=== PATIENT | female | born 1995 | race Caucasian/White ===

== ENCOUNTER 2025-04-17 22:22 | Emergency (ER) | payer MEDICAID ==
[~2025-04-17] VITALS: Ht 144.8 cm; Wt 70.0 kg
[2025-04-17 22:54] VITALS: TEMP 36.9; O2SAT 100
[2025-04-17] MEDS: MAGNESIUM/ALUMINUM HYDROXIDE/SIMETHICONE 30ML UDC PO ONE (23:22)
[2025-04-17] MEDS: PANTOPRAZOLE 40MG DR TABLET PO ONE (23:22)
[2025-04-17] MEDS: ACETAMINOPHEN 325MG TABLET PO ONE (23:23)
[2025-04-17 23:33] LABS: BASOPHILS % 0.8 % (0.0-2.0); EOSINOPHILS % 1.4 % (0.0-5.0); HEMATOCRIT. 37.4 % (36.0-48.0); HEMOGLOBIN. 12.8 g/dL (12.0-16.0); LYMPHOCYTES % 37.6 % (20.0-50.0); MEAN PLATELET VOLUME 9.0 fl (7.4-10.4); MONOCYTES % 5.9 % (2.0-8.0); NEUTROPHILS % 54.3 % (40.0-76.0); PLATELET 300 x1000/uL (130-400); RED BLOOD CELL COUNT 4.13 mill/uL (4.2-5.4); RED CELL DISTRIBUTION WIDTH 13.4 % (11.6-14.6)
[2025-04-17 23:34] LABS: CLARITY URINE CLEAR (CLEAR); COLOR URINE YELLOW (YELLOW); GLUCOSE URINE NEGATIVE (NEGATIVE); KETONES URINE NEGATIVE (NEGATIVE); LEUKOCYTE ESTERASE URINE TRACE (NEGATIVE); NITRITE URINE NEGATIVE (NEGATIVE); OCCULT BLOOD URINE 2+ (NEGATIVE); PH URINE 7.5 (4.5-8.0); PROTEIN URINE NEGATIVE (NEGATIVE); SPECIFIC GRAVITY URINE 1.014 (1.005-1.030); UROBILINOGEN URINE 0.2 E.U./dL (0.2-1.0)
[2025-04-17 23:48] LABS: *AMPHETAMINES SCREEN URINE NEGATIVE (NEGATIVE); *BARBITURATES SCREEN URINE NEGATIVE (NEGATIVE); *BENZODIAZEPINES SCREEN URINE NEGATIVE (NEGATIVE); *COCAINE SCREEN URINE NEGATIVE (NEGATIVE); CANNABINOID URINE SCREEN NEGATIVE (NEGATIVE); ECSTASY MDMA SCREEN URINE NEGATIVE (NEGATIVE); METHADONE URINE SCREEN NEGATIVE (NEGATIVE); OPIATES URINE SCREEN NEGATIVE (NEGATIVE); PHENCYCLIDINE URINE SCREEN NEGATIVE (NEGATIVE)
[2025-04-17 23:49] LABS: CREATININE 0.8 mg/dL (0.6-1.0); UREA NITROGEN BLOOD 12 mg/dL (9-23)
[2025-04-17 23:50] LABS: ETHANOL BLOOD < 10 mg/dL (<10)
[2025-04-17 23:52] LABS: ASPARTATE AMINOTRANSFERASE 18 IU/L (<34); BILIRUBIN DIRECT 0.1 mg/dL (<=3.0); BILIRUBIN TOTAL 0.3 mg/dL (0.1-1.0); PROTEIN TOTAL 7.5 g/dL (6.0-8.3)
[2025-04-18 00:26] LABS: HCG SCREEN NEGATIVE
[2025-04-18 00:32] LABS: AMORPHOUS SEDIMENT URINE 1+ /lpf; BACTERIA URINE TRACE; SQUAMOUS EPITHELIAL CELL URINE 2+ /lpf (RARE/1+); WBC URINE 0-2 /hpf (0-2)
[2025-04-18] MEDS: LORAZEPAM 1MG TABLET PO NR (01:20)
[2025-04-18] MEDS ORDERED: IBUP-2030 MT (01:35)
[2025-04-18 01:50] VITALS: BP 104/72; PULSE 67; RESP 15; O2SAT 100
== END 2025-04-18 01:56 | disposition home or self-care (01) ==
LOC: ER 22:22
DX: K80.20 Calculus of gallbladder without cholecystitis without obstruction (principal); Z79.899 Other long term (current) drug therapy
CPT/HCPCS: 36415; 76705; 80048; 80076; 80305; 80320; 81003; 81025; 84703; 85025; 99284; G0480

== ENCOUNTER 2025-05-06 22:18 | Emergency (ER) | payer MEDICAID ==
[~2025-05-06] VITALS: Ht 165.1 cm; Wt 65.0 kg
[~2025-05-06 22:18] MED LIST: IBUP-2030 MT
[2025-05-06 22:19] VITALS: O2SAT 98
[2025-05-06 22:51] LABS: BASOPHILS % 0.5 % (0.0-2.0); EOSINOPHILS % 1.1 % (0.0-5.0); HEMATOCRIT. 35.9 % (36.0-48.0); HEMOGLOBIN. 12.1 g/dL (12.0-16.0); LYMPHOCYTES % 32.9 % (20.0-50.0); MEAN PLATELET VOLUME 8.6 fl (7.4-10.4); MONOCYTES % 6.0 % (2.0-8.0); NEUTROPHILS % 59.5 % (40.0-76.0); PLATELET 292 x1000/uL (130-400); RED BLOOD CELL COUNT 4.00 mill/uL (4.2-5.4); RED CELL DISTRIBUTION WIDTH 13.1 % (11.6-14.6)
[2025-05-06] MEDS: FAMOTIDINE 20MG/2ML VIAL IV ONE (22:53)
[2025-05-06] MEDS: KETOROLAC 15MG/ML VIAL IV ONE (22:54)
[2025-05-06] MEDS: ONDANSETRON HCL 4MG/2ML INJ IV ONE (22:54)
[2025-05-06] MEDS: SODIUM CHLORIDE 0.9% 1,000 ML IV ONE (22:56)
[2025-05-06 23:08] LABS: CREATININE 0.9 mg/dL (0.6-1.0); UREA NITROGEN BLOOD 15 mg/dL (9-23)
[2025-05-06 23:09] LABS: ETHANOL BLOOD < 10 mg/dL (<10)
[2025-05-06 23:10] LABS: ASPARTATE AMINOTRANSFERASE 28 IU/L (<34); BILIRUBIN DIRECT < 0.1 mg/dL (<=3.0); BILIRUBIN TOTAL 0.2 mg/dL (0.1-1.0); PROTEIN TOTAL 7.1 g/dL (6.0-8.3)
[2025-05-06 23:11] LABS: HCG SCREEN NEGATIVE
[2025-05-07 00:59] LABS: CLARITY URINE CLEAR (CLEAR); COLOR URINE YELLOW (YELLOW); GLUCOSE URINE NEGATIVE (NEGATIVE); KETONES URINE NEGATIVE (NEGATIVE); LEUKOCYTE ESTERASE URINE 1+ (NEGATIVE); NITRITE URINE NEGATIVE (NEGATIVE); OCCULT BLOOD URINE 2+ (NEGATIVE); PH URINE 5.5 (4.5-8.0); PROTEIN URINE NEGATIVE (NEGATIVE); SPECIFIC GRAVITY URINE 1.012 (1.005-1.030); UROBILINOGEN URINE 0.2 E.U./dL (0.2-1.0)
[2025-05-07 01:01] LABS: *AMPHETAMINES SCREEN URINE NEGATIVE (NEGATIVE); *BARBITURATES SCREEN URINE NEGATIVE (NEGATIVE); *BENZODIAZEPINES SCREEN URINE NEGATIVE (NEGATIVE); *COCAINE SCREEN URINE NEGATIVE (NEGATIVE); CANNABINOID URINE SCREEN NEGATIVE (NEGATIVE); ECSTASY MDMA SCREEN URINE NEGATIVE (NEGATIVE); METHADONE URINE SCREEN NEGATIVE (NEGATIVE); OPIATES URINE SCREEN NEGATIVE (NEGATIVE); PHENCYCLIDINE URINE SCREEN NEGATIVE (NEGATIVE)
[2025-05-07] MEDS ORDERED: ONDA-239 PO (01:43)
[2025-05-07] MEDS ORDERED: NAPR220C61 MT (01:43)
[2025-05-07 01:49] VITALS: BP 107/66; PULSE 64; RESP 12; TEMP 36.7; O2SAT 98
[2025-05-07 03:14] LABS: SQUAMOUS EPITHELIAL CELL URINE 1+ /lpf (RARE/1+)
[2025-05-07 03:16] LABS: BACTERIA URINE 1+; WBC URINE 0-2 /hpf (0-2)
== END 2025-05-07 01:59 | disposition home or self-care (01) ==
LOC: ER 22:18
DX: K80.70 Calculus of gallbladder and bile duct without cholecystitis without obstruction (principal); R10.13 Epigastric pain; Z79.899 Other long term (current) drug therapy
CPT/HCPCS: 80076; 80048; 80320; 84703; 83690; 85025; 36415; 71045; 76705; 96374; 96375; 99285; 80305; 81003; J1308; J1885; J2405; J7030; G0480